=== PATIENT | female | born 1955 | race African-American/Black ===

== ENCOUNTER 2021-04-25 11:43 | Inpatient (IN) | payer OTHER ==
[2021-04-25 14:28] VITALS: BMI 19.0
[2021-04-25] MEDS ORDERED: cloNIDine HCL 0.1 MG TABLET PO PRN (14:44)
[2021-04-25] MEDS ORDERED: MENTHOL/PHENOL 1 EACH UD MM PRN (14:44)
[2021-04-25] MEDS ORDERED: ONDANSETRON *ODT* 4 MG TABLET SL PRN (14:44)
[2021-04-25] MEDS ORDERED: MAGNESIUM CITRATE 300 ML BOTTLE PO PRN (14:44)
[2021-04-25] MEDS ORDERED: LOPERAMIDE HCL 2 MG CAPSULE PO PRN (14:44)
[2021-04-25] MEDS ORDERED: IBUPROFEN 400 MG TABLET (FP) PO PRN (14:44)
[2021-04-25] MEDS ORDERED: BISMUTH SUBSALICYLATE 524 MG/30 ML PO PRN (14:44)
[2021-04-25] MEDS ORDERED: MAG HYDROX/AL HYDROX/SIMETH 30 ML UNIT-DOSE CUP PO PRN (14:44)
[2021-04-25] MEDS ORDERED: NICOTINE 10 MG CARTRIDGE (INHALER) IH PRN (14:44)
[2021-04-25] MEDS ORDERED: ACETAMINOPHEN 325 MG TABLET (FP) PO PRN (14:44)
[2021-04-25] MEDS ORDERED: MAGNESIUM HYDROX 2400MG/30ML ORAL SUSPENSION 30 ML CUP PO PRN (14:44)
[2021-04-25] MEDS ORDERED: methaDONE HCL 10 MG TABLET (FOR DETOX USE ONLY) PO ONE (15:00)
[2021-04-25] MEDS ORDERED: methaDONE HCL 10 MG TABLET (FOR DETOX USE ONLY) ONE (15:59)
[2021-04-25] MEDS: METHOCARBAMOL 500 MG TABLET PO PRN (20:54)
[2021-04-25] MEDS: PRENATAL VITAMINS W/ FOLIC ACID TABLET (FP) PO SCH (20:55)
[2021-04-25] MEDS: THIAMINE HCL 100 MG TABLET (FP) PO SCH (21:00)
[2021-04-25] MEDS: MELATONIN 5 MG TABLETS PO SCH (21:00)
[2021-04-25] MEDS: BACITRACIN 0.9 GM PACKET TP SCH (21:00)
[2021-04-26] MEDS ORDERED: methaDONE HCL 10 MG TABLET (FOR DETOX USE ONLY) ONE (08:37)
[2021-04-26] MEDS: PRENATAL VITAMINS W/ FOLIC ACID TABLET (FP) PO SCH (10:40)
[2021-04-26] MEDS: BACITRACIN 0.9 GM PACKET TP SCH ×2 (10:40→22:17)
[2021-04-26] MEDS: ASPIRIN 81 MG CHEWABLE TABLETS PO SCH (10:41)
[2021-04-26] MEDS: METHOCARBAMOL 500 MG TABLET PO PRN ×3 (10:41→23:54)
[2021-04-26] MEDS ORDERED: DICYCLOMINE HCL 10 MG CAPSULE PO ONE (11:15)
[2021-04-26] MEDS: FAMOTIDINE 20 MG TABLET PO SCH ×2 (12:27→22:17)
[2021-04-26] MEDS: LIDOCAINE 5% TOPICAL PATCH TP SCH (12:28)
[2021-04-26 12:39] LABS: HEMATOCRIT 35.7 % (32.4-45.2); HEMOGLOBIN 11.9 GM/dL (10.7-15.3); MCH 30.4 pg (25.7-33.7); MCHC 33.3 g/dl (32.0-36.0); MEAN CELL VOLUME 91.4 fl (80-96); MEAN PLT VOLUME 9.1 fl (7.5-11.1); PLATELET COUNT 216 10^3/uL (134-434); WHITE BLOOD COUNT 6.6 K/mm3 (4.0-10.0)
[2021-04-26 12:54] LABS: ALBUMIN 3.4 g/dl (3.4-5.0)
[2021-04-26 12:56] LABS: BLOOD UREA NITROGEN 12.1 mg/dL (7-18)
[2021-04-26 12:58] LABS: CREATININE 0.8 mg/dL (0.55-1.3)
[2021-04-26 12:59] LABS: TOT PROT 6.1 g/dl (6.4-8.2)
[2021-04-26 13:18] LABS: SICKLE CELL SCREEN NEGATIVE (NEGATIVE)
[2021-04-26] MEDS: SODIUM CHLORIDE NASAL SPRAY 44 ML BOTTLE NS SCH ×2 (15:30→22:18)
[2021-04-26] MEDS: THIAMINE HCL 100 MG TABLET (FP) PO SCH (22:17)
[2021-04-26] MEDS: LIDOCAINE PATCH REMOVAL MC SCH (22:18)
[2021-04-26] MEDS: MELATONIN 5 MG TABLETS PO SCH (22:18)
[2021-04-27] MEDS ORDERED: MELATONIN 5 MG TABLETS PO ONE (01:54)
[2021-04-27] MEDS: ACETAMINOPHEN 325 MG TABLET (FP) PO PRN (07:24)
[2021-04-27] MEDS: METHOCARBAMOL 500 MG TABLET PO PRN ×3 (07:26→18:37)
[2021-04-27] MEDS ORDERED: methaDONE HCL 10 MG TABLET (FOR DETOX USE ONLY) PO ONE (10:00)
[2021-04-27] MEDS: ASPIRIN 81 MG CHEWABLE TABLETS PO SCH (10:10)
[2021-04-27] MEDS: BACITRACIN 0.9 GM PACKET TP SCH ×2 (10:10→22:04)
[2021-04-27] MEDS: FAMOTIDINE 20 MG TABLET PO SCH ×2 (10:10→22:03)
[2021-04-27] MEDS: PRENATAL VITAMINS W/ FOLIC ACID TABLET (FP) PO SCH (10:10)
[2021-04-27] MEDS: SODIUM CHLORIDE NASAL SPRAY 44 ML BOTTLE NS SCH ×2 (10:11→22:03)
[2021-04-27] MEDS ORDERED: MELATONIN 5 MG TABLETS PO SCH (11:05)
[2021-04-27] MEDS: LIDOCAINE 5% TOPICAL PATCH TP SCH (12:31)
[2021-04-27] MEDS ORDERED: SUVOREXANT 10 MG TABLET PO PRN (22:00)
[2021-04-27] MEDS: THIAMINE HCL 100 MG TABLET (FP) PO SCH (22:03)
[2021-04-27] MEDS: LIDOCAINE PATCH REMOVAL MC SCH (22:04)
[2021-04-28 00:09] LABS: SARS-CoV-2 NAA Not Detected (Not Detected)
[2021-04-28] MEDS ORDERED: diazePAM 5 MG TABLET PO ONE (00:37)
[2021-04-28] MEDS: METHOCARBAMOL 500 MG TABLET PO PRN ×2 (05:56→11:05)
[2021-04-28] MEDS: ACETAMINOPHEN 325 MG TABLET (FP) PO PRN (05:56)
[2021-04-28] MEDS: SODIUM CHLORIDE NASAL SPRAY 44 ML BOTTLE NS SCH (09:25)
[2021-04-28] MEDS: ASPIRIN 81 MG CHEWABLE TABLETS PO SCH (09:25)
[2021-04-28] MEDS: FAMOTIDINE 20 MG TABLET PO SCH (09:25)
[2021-04-28] MEDS: PRENATAL VITAMINS W/ FOLIC ACID TABLET (FP) PO SCH (09:25)
[2021-04-28] MEDS: LIDOCAINE 5% TOPICAL PATCH TP SCH (09:26)
[2021-04-28] MEDS: BACITRACIN 0.9 GM PACKET TP SCH (09:26)
[2021-04-28 13:11] VITALS: PULSE 67; TEMP 97.3
[2021-04-28 13:12] VITALS: BP 91/57
[2021-04-28] MEDS ORDERED: SUVOREXANT 20 MG TABLET PO PRN (22:00)
== END 2021-04-28 13:15 | disposition home or self-care (01) | DRG 897 ==
LOC: YASAS 11:43 → Y6N 17:56 → UNDOADMIN 17:56 → Y6N 19:34
PROVIDERS: ADMIT Allergy & Immunology; ATTEND Allergy & Immunology
PROC: HZ2ZZZZ Detoxification Services for Substance Abuse Treatment (ICD-10-PCS; principal; 2021-04-27)
DX: F11.23 Opioid dependence with withdrawal (principal); F14.20 Cocaine dependence, uncomplicated; F19.282 Other psychoactive substance dependence with psychoactive substance-induced sleep disorder; Z68.1 Body mass index [BMI] 19.9 or less, adult; F17.210 Nicotine dependence, cigarettes, uncomplicated; M54.50 Low back pain, unspecified; G89.29 Other chronic pain; R63.6 Underweight; Z86.19 Personal history of other infectious and parasitic diseases; Z88.0 Allergy status to penicillin
CPT/HCPCS: 36415; 80053; 85027; 85660; 86780; 87811; 93005; 93010; C9803; J0735; U0003; U0005